=== PATIENT | female | born 1950 ===

== ENCOUNTER 2021-12-08 12:00 | Observation (INO) | payer MEDICARE, SELFPAY ==
[2021-12-08] VITALS (11 sets, daily range): BP systolic 105–109; BP diastolic 44–53; PULSE 58–69; RESP 10–18; TEMP 36.2–37; O2SAT 99–100; BMI 25.6
--- NOTE | ~2021-12-08 | CT_ITS ---
EXAMINATION: CT abdomen pelvis w con DATE: 12/08/2021 14:04 INDICATION: Abdominal distention. Elevated serum lipase. TECHNIQUE: Computed tomography (CT) of the abdomen and pelvis was performed with 100 CC Omnipaque 350 intravenous contrast. Automated exposure control and iterative reconstruction technique were employe d. Exam dose: 727.06 mGy-cm total exam DLP. COMPARISON: None. FINDINGS: Nonspecific 4 mm groundglass middle lobe nodule (series 4 image 3) and mild patchy infiltra te or atelectasis in the lower lung zones. Cardiomegaly. No pericardial effusion. Small left pleural effusion. Prominent ascites. There is a small nodular liver consistent with cirrhosis. Moderately prominent spl enomegaly. Varices and recanalization of the umbilical vein are noted. Multiple calcified granulomas in the spleen and liver consistent with old granulomatous disease. Status post cholecystectomy. No hepatic, splenic or pancreatic space-occupying mass lesion is evident. No pancreatic calcification or ductal dilatation. No bile duct dilatation is evident. The adrenal glands. 7 mm right renal cyst. There are couple of pinpoint nonobstructing right renal possible calculi versu s enhancing vessels (series 3 image 78). Pinpoint nonobstructing mid left renal calculus. No ureteral calculus or hydroureteronephrosis is not ed on either side. There is atherosclerotic calcification but normal caliber of the abdominal aorta. No intraperitoneal or retroperitoneal or pelvic mass lesion or adenopathy. There is liquid stool in the colon but no bowel obstruction or intraperitoneal free air is detected. There is a generator device in the right lower back area with left sacral neurotransmitter lead. Included skeletal structures are unremarkable. IMPRESSION: Cirrhosis, portal venous hypertension, varices, recanalized umbilical vein, moderately p rominent spleen, prominent ascites Status post cholecystectomy Reviewed, dictated and finalized at [facility]. Reviewed, dictated and finalized at location [facility]. IMPRESSION: Cirrhosis, portal venous hypertension, varices, recanalized umbili emmy vein, moderately prominent spleen, prominent ascites Status post cholecystectomy
--- NOTE | ~2021-12-08 | US_ITS ---
EXAMINATION: US paracentesis abd w/image DATE: 12/08/2021 15:26 INDICATION: Ascites. TECHNIQUE: The procedure and its risks, benefits, and alternatives were discussed with the patient. P otential risks discussed included bleeding and infection. The skin was prepped and draped in sterile fashion. 1% lidocaine was used for local anesthesia. Under ultrasound guidance, a 5 Fr catheter with trochar was advanced into the ascites in the left lower quadrant. Fluid was aspirated. The catheter w as removed, and a dressing was applied. There were no immediate complications. FINDINGS: Ultrasound images demonstrate ascites and the catheter within the fluid. IMPRESSION: 1. Successful ultrasound-guided paracentesis yielding 5000 mL of yellow fluid. Reviewed, dictated and finalized at location [facility].
--- NOTE | ~2021-12-08 | CT_ITS ---
EXAMINATION: CT brain wo con DATE: 12/08/2021 12:44 INDICATION: Altered mental status. TECHNIQUE: Computed tomography (CT) of the head was performed without intravenous contrast. The mA wa s adjusted according to patient size. Iterative reconstruction technique was employed. The dose-lengt h product was 605.33 mGy-cm. COMPARISON: None FINDINGS: There are scattered areas of low attenuation in the cerebral white matter, which is within normal limits for the patient's age. There is no intracranial hemorrhage, acute infarction, or abnorm al intracranial mass lesion. The ventricles are normal in size. The orbits are normal. The paranasal sinuses are clear. There is a trace left mastoid effusion. IMPRESSION: 1. Normal aging brain. Reviewed, dictated and finalized at location [facility]. IMPRESSION: 1. Normal aging brain.
--- NOTE | 2021-12-08 12:04 | ECG_ITS ---
Measurements Intervals [place] Rate: 67 P: 58 UT: 152 QRS: -6 QRSD: 102 T: 13 QT: 451 QTc: 476 Interpretive Statements SINUS RHYTHM DELAYED PRECORDIAL R/S TRANSITION BORDERLINE T WAVE ABNORMALITY- ANT/INF LEADS BASELINE ARTIFACT- I, II, AVR, AVL BORDERLINE ECG NO PREVIOUS ECG AVAILABLE FOR COMPARISON Electronically Signed On 12-08-2021 12:46:51 CDT by Eber Dodge D.O.
--- NOTE | 2021-12-08 12:20 | ED.GENADULT ---
HPI - General Adult General Chief complaint: Altered Mental Status Stated complaint: abd distention History of Present Illness HPI narrative: 71-year-old female with history of cirrhosis presented to the emergency department for evaluation of increased abdominal distention. Family states that the patient is on a liver transplant list. Patient had a recent stay at [facility] for approximately 1 month. Patient did have multiple paracenteses at [facility]. Patient was seeing Dr. Vaughn for GI but family no longer wants to see Dr. Vaughn. Patient was also admitted at [facility] last week and has been at a rehab facility for the last few days. Patient does have exertional shortness of breath and does have increased abdominal distention. Patient denies any associate abdominal pain. Patient does not have a GI physician at our facility. Patient was told that she is too sick to be on the transplant list. Related Data Allergies Allergy/AdvReac Type Severity Reaction Status Date / Time Penicillins Allergy Other Verified 12/02/21 23:23 Review of Systems Review of Systems: CONSTITUTIONAL: Denies fever, chills, or sweats. EYES: Denies visual changes, redness, or discharge. ENT: Denies rhinorrhea, congestion, sore throat, or otalgia. CARDIOVASCULAR: Denies chest pain, palpitations, or edema. RESPIRATORY: Denies cough or dyspnea. GASTROINTESTINAL: See HPI GENITOURINARY: Denies dysuria or hematuria. SKIN: Denies rash or itching. MUSCULOSKELETAL: Denies back pain, joint pain, or myalgia. NEUROLOGIC: Denies headache, numbness, or weakness. PMFSH Social History Social History Smoking status: Never smoker Exam Narrative: APPEARANCE: Well appearing, no pain, no distress, well-nourished. HEAD: normocephalic, atraumatic. EYES: PERRLA/EOMI, conjunctivae clear. NOSE: Normal no drainage THROAT: Pharynx clear, no exudate. NECK: Supple. No adenopathy, no masses. RESPIRATORY: Airway patent, respirations nonlabored. Clear to auscultation bilaterally, no rales, rhonchi, wheezing. CARDIOVASCULAR: Regular rate and rhythm without murmurs rubs or gallops. ABDOMINAL: Soft, nontender, distended MUSCULOSKELETAL: Moves all extremities. Strength/ROM intact, No edema, No calf tenderness. NEURO: Alert. Cranial nerves II through XII intact. Good gait. Good coordination SKIN: Warm, dry. Normal Color Course Course Emergency Course: Discussed case with the hospitalist and patient was admitted for her elevated lipase/pancreatitis. CT scan showed no acute changes. Patient's creatinine is similar to her baseline. Patient's liver enzymes are elevated but these are similar to her baseline. Therapeutic paracentesis by ultrasound was ordered. Patient and family were comfortable with the plan for admission. Vital Signs Vital signs: Vital Signs Temperature 97.7 F 12/08/21 11:58 Pulse Rate 68 12/08/21 11:58 Respiratory Rate 16 12/08/21 11:58 Blood Pressure 105/44 L 12/08/21 11:58 Pulse Oximetry 100 12/08/21 11:58 Oxygen Delivery Room Air 12/08/21 11:58 Temperature 97.7 F 12/08/21 11:58 Pulse Rate 61 12/08/21 13:36 Respiratory Rate 12 12/08/21 13:36 Blood Pressure 105/44 L 12/08/21 11:58 Pulse Oximetry 100 12/08/21 13:36 Oxygen Delivery Room Air 12/08/21 11:58 Medical Decision Making Vital Signs Vital Signs: Vital Signs Temperature 97.7 F 12/08/21 11:58 Pulse Rate 68 12/08/21 11:58 Respiratory Rate 16 12/08/21 11:58 Blood Pressure 105/44 L 12/08/21 11:58 Pulse Oximetry 100 12/08/21 11:58 Oxygen Delivery Room Air 12/08/21 11:58 Temperature 97.7 F 12/08/21 11:58 Pulse Rate 61 12/08/21 13:36 Respiratory Rate 12 12/08/21 13:36 Blood Pressure 105/44 L 12/08/21 11:58 Pulse Oximetry 100 12/08/21 13:36 Oxygen Delivery Room Air 12/08/21 11:58 Lab Data Lab results reviewed: Yes I reviewed the patient's lab results. Result diagrams:
[2021-12-08 13:05] LABS: Basophils Percent Auto 0.3 % (0.2-1.2); Eosinophils Absolute Auto 0.1 K/mm3 (0-0.3); Eosinophils Percent Auto 2.3 % (0-4.4); Hematocrit 25.7 % (37.0-47.0); Hemoglobin 8.6 g/dL (12.0-15.0); Immature Granulocyte Absolute 0.02 K/mm3 (0.00-0.031); Immature Granulocyte Percent A 0.5 % (0-0.5); Immature Platelet Fraction Pct 3.4 % (0.9-11.2); Lymphocytes Absolute Auto 0.58 K/mm3 (0.9-3.2); Lymphocytes Percent Auto 14.5 % (18.3-44.2); Mean Corpuscular HGB Conc 33.5 g/dl (32-36); Mean Corpuscular Hemoglobin 32.2 pg (26-34); Mean Corpuscular Volume 96.3 fl (80-100); Mean Platelet Volume 10.6 fl (7.4-10.4); Monocytes Absolute Auto 0.3 K/mm3 (0.1-0.6); Monocytes Percent Auto 6.8 % (2.6-8.5); Neutrophils Percent Auto 75.6 % (45.5-73.1); Platelet Count Result 81 k/mm3 (150-375); Red Blood Count 2.67 M/mm3 (4.2-5.4); Red Cell Distribution Width 20.2 % (11.5-14.5)
[2021-12-08 13:13] LABS: Lactic Acid Reflex 1.9 mmol/L (0.7-2.0)
[2021-12-08 13:14] LABS: Ammonia 10 umol/L (9-30)
[2021-12-08 13:18] LABS: Alanine Aminotransferase 61 U/L (6-35); Albumin Level 3.3 g/dL (3.5-5.1); Alkaline Phosphatase 122 U/L (38-126); Anion Gap 6 mmol/L (8-16); Aspartate Amino Transferase 127 U/L (14-36); Bilirubin,Total 2.4 mg/dL (0.2-1.3); Blood Urea Nitrogen 44 mg/dL (7-17); Calcium 8.5 mg/dL (8.4-10.2); Carbon Dioxide 21 mmol/L (22-30); Chloride 98 mmol/L (98-107); Estimated Glomerular Filt Rate 37; Glucose 121 mg/dL (65-110); Sodium 125 mmol/L (137-145)
[2021-12-08 13:22] LABS: INR 1.9; Prothrombin Time 20.9 Seconds (11.1-14.7)
[2021-12-08 13:23] LABS: Partial Thromboplastin Time 41.1 SECONDS (22.3-36.8)
[2021-12-08 13:26] LABS: Lipase 2319 U/L (23-300)
[2021-12-08 14:31] LABS: Appearance Urine Clear (Clear); Bilirubin Urine Negative (Negative); Blood Urine Negative (Negative); Color Urine Yellow (Yellow); Glucose Urine UA Negative (Negative); Ketones Urine Negative (Negative); Leukocyte Esterase Ur Negative LEU/UL (Negative); Nitrate Urine Negative (Negative); Protein Urine Negative (Negative); Urobilinogen Urine 0.2 mg/dL (<2.0); pH Urine 5.5 (5.0-9.0)
[2021-12-08 14:33] LABS: Add Urine Microscopic? NO
--- NOTE | 2021-12-08 15:45 | PM.IMHP ---
H&P: HPI History of Present Illness Date/Time: 12/08/21 15:45 Chief Complaint: Altered mental status Narrative: This is a 71 year old female who has a history of cirrhosis of the liver and is currently at [facility]. The patient came to the emergency room today for increased abdominal distention and confusion. The family states that the patient is on a liver transplant list. She was recently at [facility] 1 month ago. According to the she has had for paracentesis this last month. She told me that she was too sick to have a liver transplant she decided to become a DNR now. The patient had a paracentesis today which was a successful ultrasound-guided paracentesis yielding 5000 mL of yellow fluid. The patient stated she felt somewhat better. H&H is 8.6 and 25.7. Sodium is 125 which is around her baseline. Her creatinine is 1.4 which is also around her baseline and BUN is 44 which is her baseline. Total bilirubin 2.4 AST 127 ALT 61. Lipase 2319. I did give the patient some liquid she was able to tolerate them. The patient is being admitted for observation status on the date of service of 12/08/2021. Review of Systems Review of Systems: See HPI All systems reviewed & are unremarkable except as noted in HPI and below Constitutional: Constitutional: Reports as per HPI and Reports no additional constitutional complaints Eyes: Eyes: Reports as per HPI and Reports no additional eye complaints ENT: Reports system reviewed and no additional complaints, except as documented and Reports Normal hearing present Cardiovascular: Cardiovascular: Reports no additional cardiovascular complaints Respiratory: Respiratory: Reports no additional respiratory complaints and Reports no additional respiratory complaints Gastrointestinal: Gastrointestinal: Reports as per HPI and Reports no additional gastrointestinal complaints Musculoskeletal: Musculoskeletal: Reports no additional musculoskeletal complaints Integumentary/Breasts: Skin/Breast: Reports system reviewed and no additional complaints, except as docu and Reports as per HPI Neurologic: Reports system reviewed and no additional complaints, except as documented, Reports as per HPI and Reports Normal hearing present Psychiatric: Psychiatric: Reports no additional psychiatric complaints and Reports as per HPI Endocrine: Endocrine: Reports no additional endocrine complaints Hematologic/Lymphatic: Hematologic/Lymphatic: Reports no additional hematologic/lymphatic complaints Allergic/Immunologic: Allergic/Immunologic: Reports no additional allergic/immunologic complaints [facility] Past Medical History Medical History Cirrhosis Depression Diabetes Neurostimulator device in situ Surgical History Surgical History H/O abdominal hysterectomy H/O bilateral breast reduction surgery H/O foot surgery History of appendectomy History of tonsillectomy Hx of cholecystectomy S/P carpal tunnel release Family History Family History Mother Lung cancer Other Adopted Social History Social History (Updated 12/08/21 @ 17:45 by Krystal Redman NP) Social History: She is and has 2 children. 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 And she never smoked. She does not use any marijuana or illicit drugs. Her is a durable power commercial real estate attorney for healthcare Code status DNR Smoking status: Never smoker Second hand tobacco smoke exposure: Yes Alcohol intake: former Substance use: never Substance use type: does not use Spiritual care concerns: No Meds Home Medications and Allergies Home Medications Medication Instructions Recorded Confirmed Type furosemide 40 mg tablet 40 mg PO TID 12/08/21 12/08/21 History lactulose 10 gram/15 mL
--- NOTE | 2021-12-08 17:26 | PC.NURSE ---
This patient, Lyudmila Gonzalez, was admitted to Medical Room 348-01. Patient/family oriented to hospital policies and general routines including ID bracelet, bed and alarms, visiting hours, pain management, procedures, bathroom and other care routines, personal items, smoking policy, room service/diet, and visiting hours. Information on how to activate the Rapid Response Team has been discussed. Patient/Family are encouraged to report perceived risks to care and to ask questions if they do not understand what they are told or what they should do.
--- NOTE | 2021-12-08 18:43 | PC.NURSE ---
Spoke with Krystal Redman regarding patients insulin orders. Patient and spouse verbalize that patient no longer takes diabetic medications and does not check her blood sugars. They stated diabetes is the least of our concerns at this time .
[2021-12-09 06:07] LABS: Basophils Percent Auto 0.5 % (0.2-1.2); Eosinophils Absolute Auto 0.2 K/mm3 (0-0.3); Eosinophils Percent Auto 4.5 % (0-4.4); Hematocrit 24.2 % (37.0-47.0); Hemoglobin 8.3 g/dL (12.0-15.0); Immature Granulocyte Absolute 0.01 K/mm3 (0.00-0.031); Immature Granulocyte Percent A 0.3 % (0-0.5); Lymphocytes Absolute Auto 0.63 K/mm3 (0.9-3.2); Lymphocytes Percent Auto 16.8 % (18.3-44.2); Mean Corpuscular HGB Conc 34.3 g/dl (32-36); Mean Corpuscular Volume 93.4 fl (80-100); Mean Platelet Volume 9.9 fl (7.4-10.4); Monocytes Absolute Auto 0.3 K/mm3 (0.1-0.6); Monocytes Percent Auto 7.5 % (2.6-8.5); Neutrophils Absolute Auto 2.6 K/mm3 (1.3-6.7); Neutrophils Percent Auto 70.4 % (45.5-73.1); Platelet Count Result 78 k/mm3 (150-375); Red Blood Count 2.59 M/mm3 (4.2-5.4); Red Cell Distribution Width 20.4 % (11.5-14.5); White Blood Count 3.8 K/mm3 (4.5-10.0)
[2021-12-09] MEDS: SUCRALFATE 1 GM TABLET PO ×3 (06:17→18:25)
[2021-12-09 06:20] LABS: Alanine Aminotransferase 57 U/L (6-35); Albumin Level 2.9 g/dL (3.5-5.1); Alkaline Phosphatase 105 U/L (38-126); Anion Gap 8 mmol/L (8-16); Aspartate Amino Transferase 112 U/L (14-36); Bilirubin,Total 2.2 mg/dL (0.2-1.3); Blood Urea Nitrogen 42 mg/dL (7-17); CRP 5.2 mg/dL (<1.0); Calcium 8.6 mg/dL (8.4-10.2); Carbon Dioxide 20 mmol/L (22-30); Chloride 101 mmol/L (98-107); Cholesterol 59 mg/dL (0-200); Creatine Kinase 27 U/L (30-135); Estimated CRCL calculation 28 ml/min; Estimated Glomerular Filt Rate 37; Glucose 79 mg/dL (65-110); HDL Direct 9 mg/dL; Lactate Dehydrogenase 201 U/L (120-246); Lipase 1725 U/L (23-300); Magnesium 2.8 mg/dL (1.6-2.3); Potassium 4.1 mmol/L (3.4-5.0); Sodium 129 mmol/L (137-145); Triglycerides 82 mg/dL (<150)
[2021-12-09 06:34] VITALS: BP 116/48; PULSE 72; RESP 16; TEMP 36.1; O2SAT 97
[2021-12-09 06:36] LABS: LDL Cholesterol Direct < 30 mg/dL
[2021-12-09] MEDS: FUROSEMIDE 40 MG TABLET 80 MG PO (08:17)
[2021-12-09] MEDS: LACTULOSE 20 GM/30 ML UDC 10 GM PO ×2 (08:17→18:25)
[2021-12-09] MEDS: SPIRONOLACTONE 50 MG TABLET 100 MG PO (08:18)
[2021-12-09] MEDS: SERTRALINE HCL 50 MG TABLET 100 MG PO (08:18)
[2021-12-09] MEDS: PANTOPRAZOLE 40 MG TABLET PO (08:18)
--- NOTE | 2021-12-09 08:39 | PM.IMPN ---
Progress Note: A&P Assessment and Plan (1) Abdominal ascites: Code(s): R18.8 - Other ascites Status: Acute Assessment and Plan: -the patient had a successful ultrasound-guided paracentesis yielding 5000 mL of yellow fluid today. -the stated that she has had at least 4 paracentesis this past month. -initially was stated that the patient is on a list for liver transplant however she stated that she is too sick for liver transplant wants to be a DNR. (2) Encephalopathy: Code(s): G93.40 - Encephalopathy, unspecified Status: Acute Assessment and Plan: -most likely related to her liver disease (3) Cirrhosis: Code(s): K74.60 - Unspecified cirrhosis of liver Status: Acute Assessment and Plan: -the patient has had multiple paracentesis -she had a paracentesis today. (4) Diabetes: Code(s): E11.9 - Type 2 diabetes mellitus without complications Status: Acute Assessment and Plan: -Accu-Cheks AC and HS -sliding scale insulin (5) Depression: Code(s): F32.A - Depression, unspecified Status: Acute Assessment and Plan: -continue with home medications -awaiting medication reconciliation (6) Acute pancreatitis: Code(s): K85.90 - Acute pancreatitis without necrosis or infection, unspecified Status: Acute Assessment and Plan: -monitor lipase Subjective Date/time seen: 12/09/21 08:39 Objective Data Vital Signs Vital Signs: Vital Signs - 24 hr 12/08/21 11:58 12/08/21 12:08 12/08/21 12:02 Temperature 97.7 F Pulse Rate 68 58 L 69 Respiratory Rate 16 14 Blood Pressure 105/44 L Pulse Oximetry 100 100 Oxygen Delivery Room Air 12/08/21 12:15 12/08/21 12:58 12/08/21 13:23 Temperature Pulse Rate 66 62 59 L Respiratory Rate 13 10 L 10 L Blood Pressure Pulse Oximetry 100 100 99 Oxygen Delivery 12/08/21 13:36 12/08/21 15:45 12/08/21 16:00 Temperature Pulse Rate 61 64 69 Respiratory Rate 12 13 12 Blood Pressure Pulse Oximetry 100 100 100 Oxygen Delivery 12/08/21 16:15 12/08/21 21:08 12/08/21 20:00 Temperature 98.6 F 97.2 F L Pulse Rate 63 61 Respiratory Rate 14 18 Blood Pressure 108/53 L 109/47 L Pulse Oximetry 100 100 Oxygen Delivery Room Air 12/09/21 06:34 Temperature 97 F L Pulse Rate 72 Respiratory Rate 16 Blood Pressure 116/48 L Pulse Oximetry 97 Oxygen Delivery Intake/Output Intake/Output: Intake & Output 12/06/21 12/07/21 12/08/21 12/09/21 23:59 23:59 23:59 23:59 Intake Total 120 150 Output Total 5350 Balance -5230 150 Meds/Results Medications: Active Medications Generic Name Dose Route Start Last Admin Trade Name Freq PRN Reason Stop Dose Admin Dextrose 12.5 gm 12/08/21 17:43 Dextrose 50% 25 Gm/50 Ml Syringe IV PUSH PRN PRN Hypoglycemia Protocol Furosemide 80 mg 12/09/21 09:00 12/09/21 08:17 Furosemide 40 Mg Tablet PO 80 mg QAM ENRIQUETA Administration Furosemide 40 mg 12/09/21 17:00 Furosemide 40 Mg Tablet PO DAILY@1700 ENRIQUETA Glucagon 1 mg 12/08/21 17:43 Glucagon For Inj 1 Mg Vial IM PRN PRN Hypoglycemia Protocol Glucose 15 gm 12/08/21 17:43 Glucose Oral Gel 15 Gm Of Glucse In 37.5 Gm Tube PO PRN PRN Hypoglycemia Protocol Dextrose 1,000 mls @ 100 mls/hr 12/08/21 17:43 Dextrose 5% 1,000 Ml IVPB PRN PRN Hypoglycemia Protocol Lactulose 10 gm 12/09/21 09:00 12/09/21 08:17 Lactulose 20 Gm/30 Ml Udc PO 01/08/22 08:59 10 gm BID ENRIQUETA Administration Miscellaneous Information 1 each 12/08/21 00:01 (Menthol-Zinc Oxide [Calmoseptine] 0.44-20.6 % Ointment)Is Nonformulary Drug. Can Patient XX 01/07/22 00:00 CLARIFY ENRIQUETA Non-Formulary Medication 0.44 applic 12/09/21 09:00 Menthol-Zinc Oxide [Calmoseptine] TOPICAL 01/08/22 08:59 DAILY ENRIQUETA Pantoprazole Sodium 40 mg 12/09/21 09:00 12/09
[2021-12-09 11:51] VITALS: BMI 25.6
--- NOTE | 2021-12-09 13:13 | PM.DS ---
DS: Admitting Diagnosis Discharge Date December 09, 2021 Admitting Diagnosis Altered mental status with increased abdominal distention DS: Discharge Diagnosis Discharge Diagnosis (1) Abdominal ascites: Code(s): R18.8 - Other ascites Status: Acute Assessment and Plan: -the patient had a successful ultrasound-guided paracentesis yielding 5000 mL of yellow fluid today. -the stated that she has had at least 4 paracentesis this past month. -initially was stated that the patient is on a list for liver transplant however she stated that she is too sick for liver transplant wants to be a DNR. (2) Encephalopathy: Code(s): G93.40 - Encephalopathy, unspecified Status: Acute Assessment and Plan: -most likely related to her liver disease (3) Cirrhosis: Code(s): K74.60 - Unspecified cirrhosis of liver Status: Acute Assessment and Plan: -the patient has had multiple paracentesis -she had a paracentesis today. (4) Diabetes: Code(s): E11.9 - Type 2 diabetes mellitus without complications Status: Acute Assessment and Plan: -Accu-Cheks AC and HS -sliding scale insulin (5) Depression: Code(s): F32.A - Depression, unspecified Status: Acute Assessment and Plan: -continue with home medications -awaiting medication reconciliation (6) Acute pancreatitis: Code(s): K85.90 - Acute pancreatitis without necrosis or infection, unspecified Status: Acute Assessment and Plan: -monitor lipase DS: Summary Hospital Course Hospital Course: 71 year old female who has a history of cirrhosis of the liver and is currently at [facility].? The patient came to the emergency room today for increased abdominal distention and confusion.? The family states that the patient is on a liver transplant list.? She was recently at [facility] 1 month ago.? According to the she has had for paracentesis this last month.? She told me that she was too sick to have a liver transplant she decided to become a DNR now.? The patient had a paracentesis today which was a successful ultrasound-guided paracentesis yielding 5000 mL of yellow fluid.? The patient stated she felt somewhat better.? H&H is 8.6 and 25.7.? Sodium is 125 which is around her baseline.? Her creatinine is 1.4 which is also around her baseline and BUN is 44 which is her baseline.? Total bilirubin 2.4 AST 127 ALT 61.? Lipase 2319.? I did give the patient some liquid she was able to tolerate them.? The patient had a successful ultrasound-guided paracentesis yielding 5000 mL of yellow fluid. The stated that she has had at least 4 paracentesis this past month. Initially was stated that the patient is on a list for liver transplant however she stated that she is too sick for liver transplant and was made DNR. GI was consulted and will f/u outpatient for scheduled paracenteses for comfort, palliative care consult pending on outpatient basis. Time Spent with Patient Time attestation: Total time spent providing and/or coordinating discharge services: DS: Data Data Completed and Pending Labs on day of discharge: Labs from last 24 hours 12/09/21 12/09/21 12/09/21 05:41 05:41 05:41 WBC RBC Hgb Hct MCV MCH MCHC RDW Plt Count MPV Immature Gran % (Auto) Neut % (Auto) Lymph % (Auto) Cascade % (Auto) Eos % (Auto) Baso % (Auto) Lymph # (Auto) [place] # (Auto) Eos # (Auto) Baso # (Auto) Abs Immat Gran (auto) Absolute Neuts (auto) Absolute Nucleated RBC Nucleated RBC % % Immature Plt Fraction PT INR APTT D-Dimer Sodium Potassium Chloride Carbon Dioxide Anion Gap BUN Creatinine Estim Creat Clear Calc Estimated GFR Glucose Hemoglobin A1c 5.0 Lactic Acid 1.0 Calcium Magnesium Total Bilirubin AST ALT Alkalin
[2021-12-09 14:00] VITALS: BP 101/44; PULSE 70; RESP 16; TEMP 36.3; O2SAT 98
[2021-12-09 17:08] LABS: EDCOVIDSCREEN Positive (Negative)
[2021-12-09 17:49] LABS: SARS-CoV-2 RNA PCR Negative
[2021-12-09] MEDS: FUROSEMIDE 40 MG TABLET PO (18:25)
== END 2021-12-09 19:16 ==
LOC: ANHED 13:51 → ANH3MED 15:16
PROVIDERS: Nurse Practitioner; Admitting Provider Chiropractor; Emergency Provider Emergency Medicine; PCP Internal Medicine; Visit Provider Student in an Organized Health Care Education/Training Program
DX: R18.8 Other ascites (principal); G93.40 Encephalopathy, unspecified; K74.60 Unspecified cirrhosis of liver; R41.0 Disorientation, unspecified; E11.9 Type 2 diabetes mellitus without complications; F32.A Depression, unspecified; K85.90 Acute pancreatitis without necrosis or infection, unspecified; E87.1 Hypo-osmolality and hyponatremia; K76.6 Portal hypertension; Z66 Do not resuscitate; Z20.822 Contact with and (suspected) exposure to COVID-19; Z96.82 Presence of neurostimulator; Z90.710 Acquired absence of both cervix and uterus; Z90.49 Acquired absence of other specified parts of digestive tract; Z79.899 Other long term (current) drug therapy
CPT/HCPCS: 36415; 49083; 51701; 70450; 74177; 80053; 80061; 81003; 82140; 82550; 83036; 83605; 83615; 83690; 83735; 84443; 85025; 85055; 85380; 85610; 85730; 86140; 87426; 93005; 99285; A9270; C9803; G0378; Q9967; U0003; U0005

== ENCOUNTER 2022-01-05 13:32 | Observation (INO) | payer OTHER, SELFPAY ==
--- NOTE | ~2022-01-05 | XR_ITS ---
EXAMINATION: XR chest 1V portable INDICATION: Shortness of breath TECHNIQUE: Portable AP chest at 1513 hours COMPARISON: None available FINDINGS: The lungs are free of acute opacities. No pleural effusion or pneumothorax. The cardiomedia stinal silhouette is normal. IMPRESSION: 1. No acute cardiopulmonary abnormality. Reviewed, dictated and finalized at location A.
[2022-01-05 13:40] VITALS: BP 111/42; PULSE 82; RESP 16; TEMP 36.4; O2SAT 100
[2022-01-05 15:07] LABS: Eosinophils Percent Auto 1.9 % (1.0-6.0); Hematocrit 21.5 % (35.0-42.0); Hemoglobin 7.4 g/dL (11.7-13.8); Immature Granulocyte Absolute 0.03 K/mm3 (0.00-0.00); Immature Granulocyte Percent A 0.6 % (0.0-0.0); Immature Platelet Fraction Pct 1.8 % (1.0-7.0); Lymphocytes Absolute Auto 0.84 K/mm3 (1.10-4.50); Lymphocytes Percent Auto 15.8 % (18.0-42.0); Mean Corpuscular HGB Conc 34.4 g/dL (32.0-36.0); Mean Platelet Volume 10.6 fl (9.2-11.8); Monocytes Absolute Auto 0.29 K/mm3 (0.10-0.90); Monocytes Percent Auto 5.5 % (2.0-11.0); Neutrophils Percent Auto 76.2 % (50.0-70.0); Platelet Count Result 85 K/mm3 (150-420); Red Blood Count 2.24 M/mm3 (4.20-5.40); Red Cell Distribution Width 20.9 % (11.6-14.4); White Blood Count 5.3 K/mm3 (4.8-10.8)
[2022-01-05 15:16] LABS: Ammonia 42 umol/L (11-32); Lipase 553 U/L (73-393)
--- NOTE | 2022-01-05 15:22 | PC.NURSE ---
1444 spoke with daughter, wilfredo gardner, . concerned with mother placement but lives in [place] and unable to assist, doesnt know much about pt care as nyla rodriguez is primary care provider and is unable to take care of pt at this time. 1453 spoke with trini live, rn, home hospice nurse. obtained what medical information regarding the pt that she had available. 1500 case management called and notified of placement needs. 1505 kimberly in room with pt.
[2022-01-05 15:23] LABS: Lactic Acid Reflex 1.4 mmol/L (0.4-2.0)
[2022-01-05 15:27] VITALS: BP 93/51; PULSE 82; RESP 20
[2022-01-05 15:32] LABS: Alanine Aminotransferase 41 U/L (14-59); Albumin Level 2.4 g/dL (3.4-5.0); Alkaline Phosphatase 118 U/L (46-116); Anion Gap 10 mmol/L (8-16); Aspartate Amino Transferase 114 U/L (15-37); Bilirubin,Total 2.2 mg/dL (0.00-1.00); Blood Urea Nitrogen 126 mg/dL (7-18); Calcium 9.1 mg/dL (8.5-10.1); Carbon Dioxide 23 mmol/L (21-32); Chloride 98 mmol/L (98-108); Estimated CRCL calculation 5 ml/min; Estimated Glomerular Filt Rate 6; Glucose 89 mg/dL (70-99); Osmolality Calculated 311 mOsm/kg (285-295); Sodium 131 mmol/L (136-145); Total Protein 6.7 g/dL (6.4-8.2)
--- NOTE | 2022-01-05 15:51 | ED.GENADULT ---
HPI - General Adult General Chief complaint: Unspecified Stated complaint: AMBULANCE Related Data Home Medications Medication Instructions Recorded Confirmed pantoprazole 40 mg tablet,delayed 40 mg PO BID 12/08/21 12/08/21 release sertraline 100 mg tablet 100 mg PO DAILY 12/08/21 12/08/21 sucralfate 1 gram tablet 1 g PO PRN nausea 12/08/21 12/08/21 Allergies Allergy/AdvReac Type Severity Reaction Status Date / Time Penicillins Allergy Other Verified 12/02/21 23:23 [facility] Past Medical History Medical History Cirrhosis Depression Diabetes Neurostimulator device in situ Surgical History Surgical History H/O abdominal hysterectomy H/O bilateral breast reduction surgery H/O foot surgery History of appendectomy History of tonsillectomy Hx of cholecystectomy S/P carpal tunnel release Family History Family History Mother Lung cancer Other Adopted Social History Social History (Updated 12/08/21 @ 17:45 by Krystal Redman NP) Social History: She is and has 2 children. 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 And she never smoked. She does not use any marijuana or illicit drugs. Her is a durable power finance attorney for healthcare Code status DNR Smoking status: Never smoker Second hand tobacco smoke exposure: Yes Alcohol intake: former Substance use: never Substance use type: does not use Spiritual care concerns: No Course Vital Signs Vital signs: Vital Signs Temperature 36.4 C 01/05/22 13:40 Pulse Rate 82 01/05/22 13:40 Respiratory Rate 16 01/05/22 13:40 Blood Pressure 111/42 L 01/05/22 13:40 Pulse Oximetry 100 01/05/22 13:40 Oxygen Delivery Room Air 01/05/22 13:40 Temperature 36.4 C 01/05/22 13:40 Pulse Rate 82 01/05/22 15:27 Respiratory Rate 20 01/05/22 15:27 Blood Pressure 93/51 L 01/05/22 15:27 Pulse Oximetry 100 01/05/22 13:40 Oxygen Delivery Room Air 01/05/22 15:27 Medical Decision Making Vital Signs Vital Signs: Vital Signs Temperature 36.4 C 01/05/22 13:40 Pulse Rate 82 01/05/22 13:40 Respiratory Rate 16 01/05/22 13:40 Blood Pressure 111/42 L 01/05/22 13:40 Pulse Oximetry 100 01/05/22 13:40 Oxygen Delivery Room Air 01/05/22 13:40 Temperature 36.4 C 01/05/22 13:40 Pulse Rate 82 01/05/22 15:27 Respiratory Rate 20 01/05/22 15:27 Blood Pressure 93/51 L 01/05/22 15:27 Pulse Oximetry 100 01/05/22 13:40 Oxygen Delivery Room Air 01/05/22 15:27 Lab Data Result diagrams: 01/05/22 14:58 01/05/22 14:58 Labs: Lab Results 01/05/22 01/05/22 01/05/22 Range/Units 14:58 14:58 14:58 WBC 5.3 (4.8-10.8) K/mm3 RBC 2.24 L (4.20-5.40) M/mm3 Hgb 7.4 L (11.7-13.8) g/dL Hct 21.5 L (35.0-42.0) % MCV 96.0 (78.0-102.0) fL MCH 33.0 H (27.0-31.0) pg MCHC 34.4 (32.0-36.0) g/dL RDW 20.9 H (11.6-14.4) % Plt Count 85 L (150-420) K/mm3 MPV 10.6 (9.2-11.8) fl Immature Gran % (Auto) 0.6 H (0.0-0.0) % Neut % (Auto) 76.2 H (50.0-70.0) % Lymph % (Auto) 15.8 L (18.0-42.0) % Quay % (Auto) 5.5 (2.0-11.0) % Eos % (Auto) 1.9 (1.0-6.0) % Baso % (Auto) 0.0 (0.0-1.0) % Lymph # (Auto) 0.84 L (1.10-4.50) K/mm3 Quay # (Auto) 0.29 (0.10-0.90) K/mm3 Eos # (Auto) 0.10 (0.02-0.50) K/mm3 Baso # (Auto) 0.00 (0.00-0.10) K/mm3 Abs Immat Gran (auto) 0.03 H (0.00-0.00) K/mm3 Absolute Neuts (auto) 4.0 (1.7-7.2) K/mm3 Absolute Nucleated RBC 0.00 (0.00-0.00) K/mm3 Nucleated RBC % 0.0 (0-0.0) % % Immature Plt Fraction 1.8 (1.0-7.0) % Sodium 131 L (136-145) mmol/L Potassium 6.0 H (3.5-5.1) mmol/L Chloride 98 (98-108) mmol/L Carbon Dioxide 23 (21-3
--- NOTE | 2022-01-05 15:52 | ED.GENADULT ---
HPI - General Adult General Chief complaint: Unspecified Stated complaint: AMBULANCE Source: EMS Mode of arrival: EMS Limitations: altered mental status, physical limitation and clinical condition History of Present Illness HPI narrative: this is a 71-year-old hospice patient that presents today via EMS the patient has a history of diabetes currently not taking insulin she has poor appetite and has been only eating pudding, she lives at home with her , but her today presented via EMS with an acute stroke. Apparently the patient has no one to take care of her at home and home health was at the home and called EMS which brought her to the emergency department. Patient his hospice patient the history of cirrhosis ascites encephalopathy otherwise there is no acute distress no pain no abdominal pain no chest pain no shortness of breath no fever chills. plugger worker evaluated patient and advised admission under hospice respite and observation. Onset (ago): unknown Related Data Home Medications Medication Instructions Recorded Confirmed pantoprazole 40 mg tablet,delayed 40 mg PO BID 12/08/21 12/08/21 release sertraline 100 mg tablet 100 mg PO DAILY 12/08/21 12/08/21 sucralfate 1 gram tablet 1 g PO PRN nausea 12/08/21 12/08/21 Allergies Allergy/AdvReac Type Severity Reaction Status Date / Time Penicillins Allergy Other Verified 12/02/21 23:23 Review of Systems Review of Systems: All systems reviewed & are unremarkable except as noted in HPI and below PMFSH Past Medical History Medical History Cirrhosis Depression Diabetes Neurostimulator device in situ Surgical History Surgical History H/O abdominal hysterectomy H/O bilateral breast reduction surgery H/O foot surgery History of appendectomy History of tonsillectomy Hx of cholecystectomy S/P carpal tunnel release Family History Family History Mother Lung cancer Other Adopted Social History Social History Social History: She is and has 2 children. 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 And she never smoked. She does not use any marijuana or illicit drugs. Her is a durable power rn on site for healthcare Code status DNR Smoking status: Never smoker Second hand tobacco smoke exposure: Yes Alcohol intake: former Substance use: never Substance use type: does not use Spiritual care concerns: No Exam Const: General: ill appearing Limitations: altered mental status, language barrier and physical limitations HENMT: Head: normal to inspection Mouth: Yes Normal oral and palatal mucosa present Eyes: Conjunctivae: conjunctivae normal EOM: EOMs intact bilaterally Neck: Neck: normal visual inspection Chest: Chest palpation & inspection: normal inspection of the chest Resp: Effort & Inspection: normal respiratory effort Auscultation: clear to auscultation bilaterally Cardio: Rate: regular rate Rhythm: regular rhythm GI: GI Palp: Yes Soft to palpation Auscultation: normal bowel sounds Skin: General skin exam: normal color Rashes: no rashes Wounds: no wounds Neuro: General: patient oriented x3 Cranial nerves: Yes Nystagmus not present Extrem: General: normal to inspection and no clubbing, cyanosis or edema Psych: Mental Status: mental status grossly normal Course Course Emergency Course: Patient presents via EMS patient is a hospice patient and was brought in by EMS she lives at home with her , but her recently had an acute stroke and was sent to acute stroke center patient was visited by home health practitioner that advise that she be sent to the emergency department for further evaluation. bilingual account manager reviewed the case and adv
--- NOTE | 2022-01-05 17:13 | PCCCNOTE ---
Spoke to pt while in ED. Pt unable to answer questions due to dx. Pt is current with [facility] due to non-alcoholic cirrhosis. Her caregiver has had a emergent medical condition and is unable/not available to care for pt. Pt does have a daughter Bee Cantu [phone] who lives in [place]. Spoke to Bee who states she has spoken with Bridgett from [facility] and is agreeable for pt to go to halfway for respite care while her caregiver is unavailable. CC spoke with Bridgett and she referred us to Martina [phone] who is the hospice clinical education academic coordinator. Martina made calls to [facility] in [facility] for placement and both facilities administration was leaving for the day and would talk with her tomorrow on 01/06. Martina requests [facility] keep the pt in observation tonight until care arrangements can be made tomorrow. PASRR Level I was completed with no Level II needed. Hospice is to fax the ED the pt's POLST form.
[2022-01-05 17:25] VITALS: BP 113/50; PULSE 84; RESP 20; TEMP 36.9; O2SAT 97
[2022-01-05 17:42] VITALS: BP 110/42; PULSE 75; RESP 17; TEMP 36.2; O2SAT 100
--- NOTE | 2022-01-05 18:27 | PC.NURSE ---
Charting by Ana Carlin, student nurse has been reviewed and agreed with by this nurse.
[2022-01-05 20:00] VITALS: PULSE 75; RESP 17; O2SAT 100
--- NOTE | 2022-01-05 20:05 | PC.NURSE ---
No IV access.
--- NOTE | 2022-01-05 20:24 | PC.NURSE ---
1550 CALL FROM FOOD ANALYST STAFF CHIRAG HARDIN CAN ADMIT OBSERVATION FOR HOSPITALIST FOR RESPITE CARE. FOOD ANALYST DISCUSSED WITH JASPER MARION. DR CURIEL NOTIFIED OF ADMISSION ACCEPTANCE AND NEED TO CONTACT SANAM.
[2022-01-06] VITALS: BP 104/41; PULSE 74; RESP 16; TEMP 36.1; O2SAT 99
--- NOTE | 2022-01-06 07:23 | PM.SD2 ---
Same Day Admit/Disch: HPI History of Present Illness Chief complaint: cancer Narrative: Lyudmila Gonzalez is a 71 year old female [facility] Past Medical History Medical History Cirrhosis Depression Diabetes Neurostimulator device in situ Surgical History Surgical History H/O abdominal hysterectomy H/O bilateral breast reduction surgery H/O foot surgery History of appendectomy History of tonsillectomy Hx of cholecystectomy S/P carpal tunnel release Family History Family History Mother Lung cancer Other Adopted Social History Social History Social History: She is and has 2 children. 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 And she never smoked. She does not use any marijuana or illicit drugs. Her is a durable power associate attorney for healthcare Code status DNR Smoking status: Never smoker Second hand tobacco smoke exposure: Yes Alcohol intake: former Substance use: never Substance use type: does not use Spiritual care concerns: No Same Day Admit/Disch: Med Pre-admit Medications Home Medications Medication Instructions Recorded Confirmed Type pantoprazole 40 mg tablet,delayed 40 mg PO BID 12/08/21 01/05/22 History release sertraline 100 mg tablet 100 mg PO DAILY 12/08/21 01/05/22 History sucralfate 1 gram tablet 1 g PO PRN nausea 12/08/21 01/05/22 History furosemide 40 mg tablet 40 mg PO BID #60 tabs 12/14/21 01/05/22 Rx lactulose 10 gram/15 mL (15 mL) 10 g (15 mL) PO BID #30 mL 12/14/21 01/05/22 Rx oral solution midodrine 5 mg tablet 10 mg PO TID #90 tabs 12/14/21 01/05/22 Rx spironolactone 25 mg tablet 50 mg PO BID #60 tabs 12/14/21 01/05/22 Rx DS: Data Data Completed and Pending Labs on day of discharge: Labs from last 24 hours 01/05/22 01/05/22 01/05/22 14:58 14:58 14:58 WBC RBC Hgb Hct MCV MCH MCHC RDW Plt Count MPV Immature Gran % (Auto) Neut % (Auto) Lymph % (Auto) [place] % (Auto) Eos % (Auto) Baso % (Auto) Lymph # (Auto) [place] # (Auto) Eos # (Auto) Baso # (Auto) Abs Immat Gran (auto) Absolute Neuts (auto) Absolute Nucleated RBC Nucleated RBC % % Immature Plt Fraction Sodium 131 L Potassium 6.0 H Chloride 98 Carbon Dioxide 23 Anion Gap 10 BUN 126 H Creatinine 6.58 H* Estim Creat Clear Calc 5 Estimated GFR 6 L Glucose 89 Calculated Osmolality 311 H Lactic Acid 1.4 Calcium 9.1 Total Bilirubin 2.2 H AST 114 H ALT 41 Alkaline Phosphatase 118 H Ammonia 42 H Total Protein 6.7 Albumin 2.4 L Lipase 553 H 01/05/22 14:58 WBC 5.3 RBC 2.24 L Hgb 7.4 L Hct 21.5 L MCV 96.0 MCH 33.0 H MCHC 34.4 RDW 20.9 H Plt Count 85 L MPV 10.6 Immature Gran % (Auto) 0.6 H Neut % (Auto) 76.2 H Lymph % (Auto) 15.8 L [place] % (Auto) 5.5 Eos % (Auto) 1.9 Baso % (Auto) 0.0 Lymph # (Auto) 0.84 L [place] # (Auto) 0.29 Eos # (Auto) 0.10 Baso # (Auto) 0.00 Abs Immat Gran (auto) 0.03 H Absolute Neuts (auto) 4.0 Absolute Nucleated RBC 0.00 Nucleated RBC % 0.0 % Immature Plt Fraction 1.8 Sodium Potassium Chloride Carbon Dioxide Anion Gap BUN Creatinine Estim Creat Clear Calc Estimated GFR Glucose Calculated Osmolality Lactic Acid Calcium Total Bilirubin AST ALT Alkaline Phosphatase Ammonia Total Protein Albumin Lipase DS: Summary Time Spent with Patient Time attestation: Total time spent providing and/or coordinating discharge services: Discharge Plan Discharge Discharge Medications: No Action sucralfate 1 gram tablet 1 g PO PRN sertraline 100 mg tablet 100 mg PO DAILY pantopra
[2022-01-06 08:00] VITALS: BP 109/41; PULSE 74; RESP 18; TEMP 36.3; O2SAT 98
[2022-01-06 16:40] VITALS: BP 109/43; PULSE 76; RESP 18; TEMP 36.1; O2SAT 98
[2022-01-07 00:15] VITALS: BP 105/45; PULSE 85; RESP 18; TEMP 36.6; O2SAT 96
--- NOTE | 2022-01-07 01:00 | PC.NURSE ---
Pt changed of incontinent urine and stool. Pt is alert and will answer questions yes/no and understands she is in hospital. Pt is able to assist c turning and follows commands appropriately. Pt given sips of water and noted some difficulty swallowing, placed in position of comfort c call nava at pt side.
[2022-01-07 08:00] VITALS: BP 108/37; PULSE 96; RESP 16; TEMP 36.6; O2SAT 95
--- NOTE | 2022-01-07 10:27 | PM.DS ---
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 Patient is going to a residential for respite on hospice as they are following patient. Patient very jaundiced when she talks to barely can hear her voice we have given pain medication and her home medications patient has had difficulty swallowing while she has been here she will be transferred to facility in [facility] by ambulance and the plan is for her to go home once her is stable. Patient has not had any nausea vomiting and/or diarrhea she did not want anything heroic or extensive completed when I had a conversation with no further labs were completed and she wanted to lay and relax. Time Spent with Patient Time attestation: Total time spent providing and/or coordinating discharge services: Exam Narrative: GENERAL:Ill appearing very Jaudice frail very zulma HEAD:Normocephalic, EYES: PER slow to react . ENT: Nares clear Mucous membranes dry. CHEST: Clear but diminished to auscultation.did not take deep breath No respiratory distress. HEART: Regular rate and rhythm. decreased peripheral pulses. ABDOMEN: Soft, nontender, nondistended, normal active bowel sounds. EXTREMITIES: decreased range of motion. No edema. SKIN: cool flakey scabs all over NEURO: No focal deficits. Alert and oriented x3. Discharge Plan Discharge Attending physician on discharge: Demetrius Pagan Consulting providers: Damien Mann ; Edy Tadeo Discharging Clinician: Damien Mann Anticipated Discharge Date/Time: 01/07/22 10:26 Patient Disposition: NH Senior Care/Asst Living Activity: august shower Diet: as tolerated Discharge Instructions: Hospice [facility] will follow you to residential. Patient Instructions: Lactulose (By mouth), Cirrhosis of the Liver (DC), Hospice Care (GEN), Fall Prevention for Older Adults (DC) Stand Alone Forms: General Discharge Information, Snf Discharge Follow-up/Referrals: To follow [facility] and hospice guidelines [Other] Discharge Medications: Continued sucralfate 1 gram tablet 1 g PO PRN sertraline 100 mg tablet 100 mg PO DAILY pantoprazole 40 mg tablet,delayed release (DR/EC) 40 mg PO BID furosemide 40 mg Tablet 40 mg PO BID Qty: 60 0RF midodrine 5 mg Tablet 10 mg PO TID Qty: 90 0RF spironolactone 25 mg Tablet 50 mg PO BID Qty: 60 0RF lactulose 10 gram/15 mL (15 mL) Solution 10 g PO BID Qty: 30 0RF Date of admission: 01/05/22 15:49 Primary Care Provider: NitaNitza Admitting Provider: Demetrius Pagan Attending physician on admission: Demetrius Pagan Condition: Guarded Prognosis
--- NOTE | 2022-01-07 10:28 | PM.IMHP ---
H&P: HPI History of Present Illness Date/Time: 01/07/22 10:28 Chief Complaint: respite Narrative: This is a 71-year-old female with biliary cancer with ascites who has been on hospice that was brought to the hospital due to her her caregiver fell and had a stroke and there is no one to care for her on hospice services.? Patient is on hospice and we are going to keep patient for respite until [facility] is able to find a [facility] for patient to go to. At this time patient is jaundice and she is barely able to speak.Patient labs are abnormal but she does not want anything heroic completed at this time. Patient has been updated on her she is resting comfortable no nausea, vomiting, fever noted and she is alert and orientated at this time. we will continue to keep patient comfortable per her wishes. Review of Systems Review of Systems: Jaundice, Hospice care, biliary cancer Cirrhosis of liver All systems reviewed & are unremarkable except as noted in HPI and below PMFSH Past Medical History Medical History Cirrhosis Depression Diabetes Neurostimulator device in situ Surgical History Surgical History H/O abdominal hysterectomy H/O bilateral breast reduction surgery H/O foot surgery History of appendectomy History of tonsillectomy Hx of cholecystectomy S/P carpal tunnel release Family History Family History Mother Lung cancer Other Adopted Social History Social History Social History: She is and has 2 children. 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 And she never smoked. She does not use any marijuana or illicit drugs. Her is a durable power erisa attorney for healthcare Code status DNR Smoking status: Never smoker Second hand tobacco smoke exposure: Yes Alcohol intake: former Substance use: never Substance use type: does not use Spiritual care concerns: No Meds Home Medications and Allergies Home Medications Medication Instructions Recorded Confirmed Type pantoprazole 40 mg tablet,delayed 40 mg PO BID 12/08/21 01/05/22 History release sertraline 100 mg tablet 100 mg PO DAILY 12/08/21 01/05/22 History sucralfate 1 gram tablet 1 g PO PRN nausea 12/08/21 01/05/22 History furosemide 40 mg tablet 40 mg PO BID #60 tabs 12/14/21 01/05/22 Rx lactulose 10 gram/15 mL (15 mL) 10 g (15 mL) PO BID #30 mL 12/14/21 01/05/22 Rx oral solution midodrine 5 mg tablet 10 mg PO TID #90 tabs 12/14/21 01/05/22 Rx spironolactone 25 mg tablet 50 mg PO BID #60 tabs 12/14/21 01/05/22 Rx Allergies Allergy/AdvReac Type Severity Reaction Status Date / Time Penicillins Allergy Other Verified 12/02/21 23:23 Vital Signs Vital Signs - 24 hr 01/06/22 16:40 01/07/22 00:15 01/07/22 08:00 Temperature 97 F L 97.8 F 97.9 F Pulse Rate 76 85 96 Respiratory Rate 18 18 16 Blood Pressure 109/43 L 105/45 L 108/37 L Pulse Oximetry 98 96 95 Oxygen Delivery Room Air Room Air Room Air Exam Narrative: GENERAL:Ill appearing very Jaudice frail very zulma HEAD:Normocephalic, EYES: PER slow to react . ENT:? Nares clear Mucous membranes dry. CHEST:? Clear? but diminished to auscultation.did not take deep breath No respiratory distress. HEART:? Regular rate and rhythm. decreased peripheral pulses. ABDOMEN:? Soft, nontender, nondistended, normal active bowel sounds. EXTREMITIES: decreased range of motion. No edema. SKIN:? cool flakey scabs all over NEURO: No focal deficits. Alert and oriented x3.
--- NOTE | 2022-01-07 13:40 | PC.NURSE ---
[place] ambulance here to supervisor opening and picking patient for transfer to [facility] for hospice admission. 4 assist transfer from bed to stretcher. Personal belongings sent with patient. Report called to Lalitha at [facility]. Orders and discharge papers faxed and transferred with patient.
--- NOTE | 2022-01-10 09:40 | PC.NURSE ---
Unable to contact, retirement nurse always busy.
== END 2022-01-07 13:40 | disposition hospice, inpatient (51) ==
LOC: CHSED 16:12 → CHS2ND 17:13
PROVIDERS: Admitting Provider Internal Medicine; Emergency Provider Emergency Medicine; PCP Internal Medicine; Visit Provider Internal Medicine
DX: Z74.2 Need for assistance at home and no other household member able to render care (principal); R53.81 Other malaise; N17.9 Acute kidney failure, unspecified; K74.60 Unspecified cirrhosis of liver; E11.9 Type 2 diabetes mellitus without complications; F32.A Depression, unspecified; G93.40 Encephalopathy, unspecified; Z96.82 Presence of neurostimulator; Z90.49 Acquired absence of other specified parts of digestive tract; Z51.5 Encounter for palliative care
CPT/HCPCS: 36415; 71045; 80053; 82140; 83605; 83690; 85025; 85055; 99285; G0378